=== PATIENT | female | born 1970 | race Caucasian/White ===

== ENCOUNTER 2017-07-16 02:44 | Emergency (ER) | payer OTHER ==
[~2017-07-16] VITALS: Ht 162.6 cm; Wt 68.2 kg
[~2017-07-16 02:44] MED LIST: VICOT PO
[2017-07-16] MEDS ORDERED: NAPR-58 PO (02:53)
[2017-07-16] MEDS ORDERED: OMEP20 PO (02:53)
[2017-07-16] MEDS ORDERED: FLUO-191 PO (02:53)
[2017-07-16] MEDS ORDERED: GABA-531 PO (02:53)
[2017-07-16] MEDS ORDERED: HYDR-4031 PO (02:53)
[2017-07-16 05:23] VITALS: BP 127/74
[2017-07-16] MEDS ORDERED: LIDOCAINE HCL 1%/EPI 1:200,000/PF 10 ML VIAL ONE (05:48)
[2017-07-16] MEDS ORDERED: LIDOCAINE HCL 1%/EPI 1:200,000/PF 10 ML VIAL INJ ONE (06:00)
== END 2017-07-16 05:50 | disposition home or self-care (01) ==
LOC: EMS 02:46
DX: L02.31 Cutaneous abscess of buttock (principal); F32.9 Major depressive disorder, single episode, unspecified; F17.210 Nicotine dependence, cigarettes, uncomplicated; Z98.51 Tubal ligation status
CPT/HCPCS: 99283; 99406; J3490